=== PATIENT | female | born 1935 | race African-American/Black ===

== ENCOUNTER 2018-11-22 09:52 | Outpatient (CLI) | payer MEDICARE ==
--- NOTE | 2018-11-22 10:30 | CT ---
FNoncontrast enhanced CT images lumbar spine. HISTORY: Low back pain Noncontrast enhanced CT images of the lumbar spine obtained. Sagittal and coronal reconstruction imag es performed. Numerous extra biliary gallstones seen along the posterior aspect of the peritoneal cavity. Could thi s be the cause of the patient's pain? The gallbladder has been surgically removed. Findings suggest t he extrabiliary presence of gallstones possibly from ruptured gallbladder before or during the cholec ystectomy. T12-L1: Unremarkable. L1-2: Unremarkable. L2-3: Facet hypertrophy is present. L3-4: There is a broad-based disc bulge with bilateral facet and ligamentum flavum hypertrophy result ing in moderate degree of central and lateral recess stenosis. L4-5: There is bilateral facet and ligamentum flavum hypertrophy and grade 1 anterolisthesis of L4 on L5. There is a moderate degree of central and lateral recess stenosis. L5-S1: Bilateral facet hypertrophy is seen. There is a broad-based central disc bulge. Moderate bilat eral neural foraminal narrowing seen. There is fusion of the left SI joint. IMPRESSION: 1: Mid and lower lumbar changes as described above. 2: Extrabiliary presence of gallstones outside of the biliary lumen.
== END 2018-11-22 09:53 | disposition home or self-care (01) ==
LOC: NAV CT 09:52
PROVIDERS: ATTEND Internal Medicine
DX: M51.16 Intervertebral disc disorders with radiculopathy, lumbar region (principal); M17.0 Bilateral primary osteoarthritis of knee; M47.26 Other spondylosis with radiculopathy, lumbar region; M51.17 Intervertebral disc disorders with radiculopathy, lumbosacral region; M47.27 Other spondylosis with radiculopathy, lumbosacral region; M48.07 Spinal stenosis, lumbosacral region; M48.061 Spinal stenosis, lumbar region without neurogenic claudication; K80.20 Calculus of gallbladder without cholecystitis without obstruction
CPT/HCPCS: 72131

== ENCOUNTER 2020-10-27 14:03 | Outpatient (CLI) | payer MEDICARE ==
--- NOTE | 2020-10-27 14:34 | CT ---
CT LUMBAR SPINE WITHOUT CONTRAST: HISTORY: Lumbar radicular pain. COMPARISON: 11/22/2018. FINDINGS: Four lumbar-type vertebrae. Marked spine vertebral body height is maintained. There is no fracture. N o significant retroperitoneal or paraspinal mass, lymphadenopathy or hematoma. Visualized sacrum is intact. Symmetric SI joints. There are chronic changes in the visualized lung parenchyma. Limited evaluation the contents of the central spinal canal and neural foramina due to technique. T12-L1: No significant central canal stenosis. Mild bilateral foraminal narrowing. L1-L2: Broad-based disc bulge. No significant central canal stenosis. Mild bilateral neural foraminal narrowing. L2-L3: Broad-based disc bulge results in mild central canal stenosis. 2.7 mm of anterolisthesis of L2 upon L3. Moderate bilateral neural foraminal narrowing. L3-L4: Broad-based disc bulge, ligament flavum thickening and facet hypertrophy result in moderate ce ntral canal stenosis. There is vacuum joint phenomenon in bilateral SI joints. 4.9 mm anterolisthesis of L3 upon L4. Moderate bilateral foraminal narrowing. L4-S1 vacuum joint phenomenon. Broad-based disc bulge with moderate central canal stenosis. There is bilateral facet hypertrophy with vacuum joint phenomenon. Moderate bilateral foraminal narrowing. IMPRESSION: Multilevel degenerative changes lumbar spine as described above. Transcribed Date/Time: 10/27/2020 2:44 PM
== END 2020-10-27 14:04 | disposition home or self-care (01) ==
LOC: NAV CT 14:03
PROVIDERS: ATTEND Internal Medicine
DX: M47.26 Other spondylosis with radiculopathy, lumbar region (principal); M47.27 Other spondylosis with radiculopathy, lumbosacral region; M62.830 Muscle spasm of back
CPT/HCPCS: 72131

== ENCOUNTER 2021-10-30 10:35 | Outpatient (CLI) | payer MEDICARE | END 2021-10-30 10:36 | disposition home or self-care (01) | LOC: NAV RAD 10:35 | PROVIDERS: ATTEND Family Medicine | DX: D17.1 Benign lipomatous neoplasm of skin and subcutaneous tissue of trunk (principal); M16.0 Bilateral primary osteoarthritis of hip; M47.814 Spondylosis without myelopathy or radiculopathy, thoracic region; M47.816 Spondylosis without myelopathy or radiculopathy, lumbar region; Z98.890 Other specified postprocedural states | CPT/HCPCS: 72072; 72100 ==

== ENCOUNTER 2023-10-20 09:02 | Emergency (ER) | payer MEDICARE | END 2023-10-20 12:10 | disposition home or self-care (01) | LOC: NAV ERS 09:02 | DX: M54.50 Low back pain, unspecified (principal); M25.561 Pain in right knee; I10 Essential (primary) hypertension; W22.8XXA Striking against or struck by other objects, initial encounter | CPT/HCPCS: 72100 ==